=== PATIENT | male | born 1965 | race Caucasian/White ===

== ENCOUNTER 2016-12-28 13:23 | Outpatient (CLI) | payer MEDICARE ==
[~2016-12-28 13:23] MED LIST: BENZONATATE200 MG PO; CEFUROXIME AXE250 MG PO; DEXAMETHASONE0.5 MG PO; DEXAMETHASONE2 MG PO; FAMOTIDINE 20MG20 MG PO; FOLIC ACID1 MG PO; HYDROCODONE-APA1 TA1 PO; KEPPRA 500 MG500 MG PO; LISINOPRIL 10MG10 MG PO; LOSARTAN PO; LOSARTAN POTASS50 MG PO; METOPROLOL SUCC50 M1 PO; POTASSIUM CHLO20 ME2 PO; TAMIFLU 75MG CA75 MG PO; TARCEVA150 MG PO; VOLTAREN75 MG PO; ZOFRAN ODT8 MG PO
[2016-12-28 13:30] VITALS: BP 125/55
[2016-12-28] MEDS ORDERED: [UNRECOGNIZED DRUG - OTHER] PO (13:49)
[2016-12-28] MEDS ORDERED: MAG-OX 400MG T400 MG PO (13:50)
[2016-12-28 14:15] VITALS: BP 126/58
[2016-12-28 15:00] VITALS: BP 126/58
== END 2016-12-28 15:00 | disposition home or self-care (01) ==
LOC: COP 13:23
DX: E86.0 Dehydration (principal)

== ENCOUNTER 2016-12-30 12:34 | Emergency (ER) | payer MEDICARE ==
[~2016-12-30] VITALS: Ht 182.9 cm; Wt 72.6 kg
[~2016-12-30 12:34] MED LIST changes: +MAG-OX 400MG T400 MG PO; +[UNRECOGNIZED DRUG - OTHER] PO
--- NOTE | 2016-12-30 12:53 | Emergency Room Report ---
History of Present Illness Time Seen by 1240 Presenting Problem in Triage Pt arrived:Wheelchair Presenting Problem:PT WITH SMALL CELL LUNG CA PRESENTS PER MD INSTRUCTIONS TO BE EVALUATED FOR WHY BOTH HIS LEGS ARE HURTING AND WEAK. STATES HAS NOTICED PROGRESSION OF WEAKNESS OVER LAST FEW DAYS. HAS SEEN PCP AND BEEN PRESCRIBED FLEXERIL FOR MUSCLE SPASMS. IN ADDITION, HE HAS BEEN RUNNING A FEVER INTERMITTENTLY AND PCP FELT LIKE HE MIGHT HAVE AN OCCULT INFECTION, SO WAS COVERING WITH A ZPACK OF WHICH IS ON DAY 4 OF 5 ON. PT FREQUENTLY HAS TO COME IN FOR IV FLUIDS FOR DEHYDRATION RELATED TO CA DIAGNOSIS. 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 N Clinical Suspician of Infection? N Mental Status: 1 - Regular (Normal Baseline) Sepsis Risk:Low Sepsis Risk Have you (or family members/close friends) recently traveled outside the [place]? N If Yes, where/when: Have you had exposure to infectious disease within the past month? TB? Other? Specify: Comment The patient complains of bilateral leg pain, RIGHT leg swelling, and fever. He has small cell lung cancer diagnosed in September and has had radiation and is currently under chemotherapy. Last chemotherapy was 3 weeks ago. He had to miss his chemotherapy last week because of low white blood cell count. White blood cell count was 2.8 on 12/24/16. He has had aching of both legs in the popliteal areas and calves for a week or so. He has had swelling of his RIGHT leg for 2 days. His RIGHT leg hurts more than his LEFT. He had a fever of 101.7 last night. He has had some slight shortness of breath for 2-3 weeks. No hemoptysis. No URI symptoms, no abdominal pain, vomiting, or diarrhea, and no urinary symptoms. No redness of his legs. IV fluids a couple of days ago which slightly helped his leg pain, he says he was dehydrated. He also has a previous history of adenocarcinoma of the lung 2 years ago. Currently on a z-enrique. ALLERGIES Coded Allergies: No Known Allergies (12/30/16) Home Medications Reported Medications Ondansetron (Zofran 8MG Odt) 8 MG PO Q8HP PRN NASUEA Dexamethasone 2 MG PO DAILY POTASSIUM CHL (Potassium Chloride) 20 MEQ PO DAILY ERLOTINIB HCL (Tarceva) 150 MG PO DAILY [ENEND] 1 TAB PO DIRECTED PRN NAUSEA MAGNESIUM OXIDE (Magnesium Oxide) 400 MG PO DAILY Folic Acid 1 MG PO QHS #30 History Medical History General CAD? No Angina: No OK: No Hypertension? Yes Hyperlipidemia? No CHF? No COPD? No Asthma? No Anemia? No Hernia? Yes Thyroid Problems? No Hypothyroidism? No CVA? No Seizures? No Diabetes? No End Stage Renal Disease? No UTI? No Stones? Yes GB Disease: No Nephritic Syndrome? No Asplenia? No Hepatitis? No Sickle Cell Disease? No Arthritis? No Cataracts? No Glaucoma? No MRSA? No TB? No Cancer? Yes Site: LUNG AND BRAIN, Immunization Hx Ped.Immunizations UTD Yes DT/Tetanus 5-10 YRS Flu NEVER Pneumonia NEVER Surgical Hx Previous Surgery?Y R KNEE SURGERY CYST R ANKLE UMBILICAL HERNIA APPENDECTOMY BRAIN X2 Family History Family Hx Diabetes Yes CAD Yes Hypertension Yes Hyperlipidemia No Cancer No TB No Social History Smoking Hx Smoker: Never Smoker Tobacco: No Type N/A Are you/the child exposed to second-hand smoke: No Alcohol Alcohol: No Review of Systems All Other Systems Reviewed and Negative Constitutional fever, malaise, weakness Respiratory shortness of breath Cardiovascular denies chest pain Gastrointestinal denies abdominal pain, denies diarrhea, denies nausea, denies vomiting Genitourinary denies: dysuria, frequency, hematuria. Musculoskeletal see HPI Physical Exam Vital Signs Vital Signs Date Time Temp Pulse Resp B/P Pulse O2 O2 Flow FiO2 Ox Delivery Rate 12/30 1510 98.6 97 18 132/84 99 12/30 1347 98.6 97 18 132/84 99 12/30 1246 98.6 97 18 141/76 99 General Appearance no apparent distress Eye Exam - bilateral eye normal exam, bilateral eye PERRL, bilateral eye EOMI Ear, Nose, Throat surgical scars forehead/scalp Neck normal inspection, non-tender, supple, full range of motion Respiratory Status Yes: trachea midline, chest symmetrical, non tender chest. No: respiratory distress. Lung Sounds bilateral: normal breath sounds, lungs clear. Cardiovascular normal exam, regular rate/rhythm, no peripheral edema, no gallop, no JVD, no murmur, no rub, normal peripheral pulses Peripheral Pulses Pulses normal Yes Gastrointestinal normal bowel sounds, normal exam, non tender, soft, no organomegaly Extremities 1+ pitting edema RIGHT lower extremity area and no cords. No erythema. Normal pedal pulses. 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 No Results/Orders Laboratory Tests 12/30/16 1418: Urine Color YELLOW, Urine Appearance SL CLOUDY, Urine pH 6.0, Ur Specific Morris 1.020, Urine Protein 1+ H, Urine Ketones NEGATIVE, Urine Blood TRACE- INTACT, Urine Nitrate NEGATIVE, Urine Bilirubin NEGATIVE, Urine Urobilinogen 1.0 , Ur Leukocyte Esterase NEGATIVE, Urine RBC OCC, Urine WBC 3-5, Urine Bacteria 2 +, Urine Mucus 2+, Urine Glucose NEGATIVE 12/30/16 1316: Lactic Acid Cancelled 12/30/16 1305: Sodium 135 L, Potassium 3.7, Chloride 98, Carbon Dioxide 31, BUN 15, Creatinine 1.2, Estimated Creat Clear 73, Estimated GFR (MDRD) 63, Glucose 137 H, Calcium 8.8, Total Bilirubin 0.5, AST 17, ALT 9 L, Alkaline Phosphatase 89, Creatine Kinase 21 L, CK-MB (CK-2) Rel Index 2.4, CK and CKMB Interp < 0.5, Troponin I < 0.02, Total Protein 6.8, Albumin 2.7 L, Globulin 4.1 H, Albumin/Globulin Ratio 0.7 L, D-Dimer >5000 *H, WBC 7.4, RBC 2.96 L, Hgb 8.2 L, Hct 24.8 L, MCV 83.9, RDW 14.9, Plt Count 367, MPV 7.2 L, Gran % 80.3 H, Gran # 6.0, Lymphocytes % 11.0, Monocytes % 7.6, Eosinophils % 0.6, Basophils % 0.4, Lymphocytes # 0.8, Monocytes # 0.6, Eosinophils # 0.1, Basophils # 0.0, PUBS MCHC 33.0, MCH 27.7 Current Medication Orders Sig/Courtney Start time Last Medication Dose Route Stop Time Status Admin Enoxaparin Sodium 0 .STK-MED ONE 12/30 1501 DC SC Enoxaparin Sodium 110 MG ONCE ONE 12/30 1445 DC 12/30 SC 12/30 1446 1509 Sodium Chloride 1,000 ML .Q1H1M 12/30 1430 DCD IV 12/30 1530 Sodium Chloride 10 ML PRN PRN 12/30 1315 DCD IV 12/31 1306 Orders Procedure Date/time Status CULTURE, URINE 12/30 1418 Active D-DIMER 12/30 1316 Complete ELECTROCARDIOGRAM REQUEST 12/30 1307 Active IV SALINE LOCK 12/30 1307 Active CULTURE, BLOOD 12/30 1307 Active URINALYSIS/COMPLETE 12/30 1307 Complete CBC WITH AUTO DIFF 12/30 1307 Complete CARDIAC ENZYMES 12/30 1307 Complete CHEM 12 PROFILE 12/30 1307 Complete 12 LEAD EKG-PAVITHRA (INITIAL) 12/30 UNK Active CM/EKG CM/EKG Comments EKG interpreted by Socrates Hickman MD: Rhythm: sinus Rate: 93 [place]: normal Ectopy: none Conduction: normal ST Segment Changes: none T Wave Changes: none Q Waves: none No evidence of acute ischemia or injury XRAY/CT/US XRAY/CT/US XRAY chest Comment X-ray interpreted by Socrates Hickman M.D.: increased bronchial markings, no confluent infiltrates seen. Progress - 2:36 PM: Case discussed with Dr. Killian. He feels patient can be treated and evaluated as an outpatient. Discussed with patient and family. The patient says he would prefer outpatient evaluation and treatment. He will return in the morning for bilateral leg Doppler ultrasounds. Lovenox 1.5 mg/kg, 24-hour dose. Immediate follow-up tomorrow if ultrasound positive, for further anticoagulation. Departure Departure Disposition DC Home or Self Care(routine) Clinical Impression Primary Impression: Leg edema, right Secondary Impressions: Bilateral leg pain Elevated d-dimer EVER1 protein deficiency Fever Qualifiers: Fever type: unspecified Qualified Code: R50.9 - Fever, unspecified Condition STABLE Additional Instructions Return to the x-ray department at [facility] tomorrow morning at 7 AM for Doppler ultrasound of both legs. Rest and elevate her legs until then. He will need immediate follow-up if you're ultrasound shows a blood clot. You will need to see your family physician immediately or be seen in the emergency department if ultrasound is positive. Return to the emergency department if sudden shortness of breath, chest pain, or coughing of blood. Prescriptions Current Visit Scripts OXYCODONE HCL/ACETAMINOPHEN (Percocet 5-325 MG Tablet) 1 TAB PO Q6HP PRN pain #20 TAB ED Critical Care Critical Care No at 1916
[2016-12-30 13:18] LABS: LYMPH # 0.8 K/mm3 (0.7-4.5)
[2016-12-30 13:19] LABS: HEMOGLOBIN 8.2 g/dL (14.1-18.0)
[2016-12-30 13:36] LABS: BUN 15 mg/dL (7-18); GFR (ESTIMATED) 63 ML/MIN (>60)
[2016-12-30 14:28] LABS: URINE BILIRUBIN - DIPSTICK NEGATIVE (NEG); URINE BLOOD TRACE-INTACT (NEG)
--- NOTE | 2016-12-30 14:30 | RADIOLOGY REPORT PS360 ---
CHEST-PORTABLE HISTORY: WEAKNESS ORDERING PHYSICIAN: Socratse Hickman MD PATIENT AGE: 51 years COMPARISON: None available FINDINGS: The cardiomediastinal silhouette and pulmonary vascularity are within normal limits. There is a left IJ Mediport catheter present with the tip in the region of the confluence of the brachiocephalic veins. Hyperinflation with attenuation of peripheral pulmonary vessels noted consistent with COPD. No lobar consolidation or collapse evident. Minimal nodularity noted overlying the left upper lobe nonspecific and may be due to summation artifact. Upright PA and lateral chest may be of further value. IMPRESSION: No acute finding, COPD Nodular opacities in the left upper lobe nonspecific. Consider upright PA and lateral chest for further evaluation
[2016-12-30] MEDS ORDERED: PERCOCET1 TAB PO (14:52)
[2016-12-30 15:10] VITALS: BP 132/84
== END 2016-12-30 15:10 | disposition home or self-care (01) ==
LOC: ER 12:34
PROVIDERS: Emergency Medicine
DX: M79.604 Pain in right leg (principal); M79.605 Pain in left leg; R60.0 Localized edema; C34.80 Malignant neoplasm of overlapping sites of unspecified bronchus and lung; R50.9 Fever, unspecified

== ENCOUNTER → 2017-01-26 | Outpatient (CLI) | payer MEDICARE ==
[~2017-01-26] MED LIST changes: +PERCOCET1 TAB PO
[2017-01-26 09:39] LABS: LYMPH # 1.1 K/mm3 (0.7-4.5); LYMPH % 29.2 % (10-50)
[2017-01-26 09:56] LABS: BUN 18 mg/dL (7-18); HEMOGLOBIN 10.3 g/dL (14.1-18.0)
[2017-01-26 10:10] LABS: GFR (ESTIMATED) 58 ML/MIN (>60)
== END ==
LOC: LAB 09:27
PROVIDERS: Internal Medicine Hematology & Oncology
DX: C34.90 Malignant neoplasm of unspecified part of unspecified bronchus or lung (principal)

== ENCOUNTER → 2017-02-18 | Outpatient (CLI) | payer MEDICARE ==
[2017-02-18 09:23] LABS: HEMOGLOBIN 10.8 g/dL (14.1-18.0); LYMPH # 1.4 K/mm3 (0.7-4.5); LYMPH % 63.4 % (10-50)
[2017-02-18 10:15] LABS: NEUTROPHILS 14 % (42-76)
[2017-02-18 12:04] LABS: BUN 16 mg/dL (7-18)
[2017-02-18 12:06] LABS: GFR (ESTIMATED) 53 ML/MIN (>60)
== END ==
LOC: LAB 08:27
PROVIDERS: Internal Medicine Hematology & Oncology
DX: C34.90 Malignant neoplasm of unspecified part of unspecified bronchus or lung (principal)

== ENCOUNTER 2017-02-25 08:40 | Outpatient (CLI) | payer MEDICARE ==
[2017-02-25 09:11] LABS: LYMPH # 1.2 K/mm3 (0.7-4.5); LYMPH % 30.4 % (10-50)
[2017-02-25 09:44] LABS: HEMOGLOBIN 9.6 g/dL (14.1-18.0)
[2017-02-25 10:38] LABS: BUN 17 mg/dL (7-18)
[2017-02-25 10:53] LABS: GFR (ESTIMATED) 49 ML/MIN (>60)
== END 2017-02-25 09:01 | disposition home or self-care (01) ==
LOC: COP 08:40
PROVIDERS: Internal Medicine Hematology & Oncology
DX: C34.82 Malignant neoplasm of overlapping sites of left bronchus and lung (principal); Z45.2 Encounter for adjustment and management of vascular access device; I82.409 Acute embolism and thrombosis of unspecified deep veins of unspecified lower extremity; Z79.01 Long term (current) use of anticoagulants; Z51.81 Encounter for therapeutic drug level monitoring
CPT/HCPCS: J1642

== ENCOUNTER 2017-03-18 08:17 | Outpatient (CLI) | payer MEDICARE ==
[2017-03-18 08:44] LABS: HEMOGLOBIN 9.7 g/dL (14.1-18.0); LYMPH % 57.1 % (10-50)
[2017-03-18 08:56] LABS: BUN 13 mg/dL (7-18)
[2017-03-18 09:03] LABS: GFR (ESTIMATED) 63 ML/MIN (>60)
[2017-03-18 09:29] LABS: NEUTROPHILS 10 % (42-76)
== END 2017-03-18 08:30 | disposition home or self-care (01) ==
LOC: COP 08:17
PROVIDERS: Internal Medicine Hematology & Oncology
DX: C71.6 Malignant neoplasm of cerebellum (principal); C34.82 Malignant neoplasm of overlapping sites of left bronchus and lung; I82.409 Acute embolism and thrombosis of unspecified deep veins of unspecified lower extremity
CPT/HCPCS: J1642

== ENCOUNTER 2017-03-22 08:50 | Outpatient (CLI) | payer MEDICARE ==
[2017-03-22 09:16] LABS: HEMOGLOBIN 10.3 g/dL (14.1-18.0); LYMPH # 1.4 K/mm3 (0.7-4.5); LYMPH % 41.5 % (10-50)
[2017-03-22 09:26] LABS: BUN 18 mg/dL (7-18)
[2017-03-22 09:27] LABS: GFR (ESTIMATED) 49 ML/MIN (>60)
== END 2017-03-22 09:15 | disposition home or self-care (01) ==
LOC: COP 08:50
PROVIDERS: Internal Medicine Hematology & Oncology
DX: C34.82 Malignant neoplasm of overlapping sites of left bronchus and lung (principal); C71.6 Malignant neoplasm of cerebellum
CPT/HCPCS: J1642

== ENCOUNTER 2017-04-15 08:10 | Outpatient (CLI) | payer MEDICARE ==
[2017-04-15 08:05] VITALS: BP 150/75
== END 2017-04-15 08:30 | disposition home or self-care (01) ==
LOC: COP 08:10
DX: C34.82 Malignant neoplasm of overlapping sites of left bronchus and lung (principal); C71.6 Malignant neoplasm of cerebellum; I82.409 Acute embolism and thrombosis of unspecified deep veins of unspecified lower extremity
CPT/HCPCS: J1642